=== PATIENT | male | born 1990 | race Caucasian/White ===

== ENCOUNTER 2019-04-06 13:58 | Emergency (ER) | payer OTHER, SELFPAY ==
[2019-04-06] MEDS ORDERED: Dexamethasone 4 mg/ml Vial ONE (14:26)
== END 2019-04-06 15:45 | disposition home or self-care (01) ==
LOC: ERS 13:58
DX: T63.441A Toxic effect of venom of bees, accidental (unintentional), initial encounter (principal); L50.0 Allergic urticaria
CPT/HCPCS: 96374; J1100

== ENCOUNTER 2024-03-03 23:48 | Observation (INO) | payer SELFPAY ==
[2024-03-04 03:10] VITALS: BMI 41.0
[2024-03-04] MEDS ORDERED: hydrALAZINE 20 MG/ML VIAL SLOW IVP PRN (05:44)
[2024-03-04] MEDS ORDERED: Ipratropium/Albuterol 3 ML NEB NEB PRN ×2 (05:44→15:17)
[2024-03-04] MEDS ORDERED: Ondansetron PF 4 MG/2 ML Vial IVP PRN ×2 (05:44→15:17)
[2024-03-04] MEDS ORDERED: Acetaminophen 325 MG TAB PO PRN (05:53)
[2024-03-04] MEDS ORDERED: Piperacillin/Tazobactam 3.375 GM in Sodium Chloride 0.9% 100 ML IVPB SCH ×2 (06:00→15:30)
[2024-03-04] MEDS: Lactated Ringer's 1,000 ML IV SCH (08:11)
[2024-03-04 08:27] LABS: #Basophils 0.08 10x3/uL (0.0-0.2); %Basophils 0.7 % (0.0-1.0); %Eosinophils 2.7 % (0.0-10.0); %Lymphocytes 25.5 % (21.0-51.0); %Monocytes 6.6 % (0.0-10.0); %Neutrophils 63.8 % (42.0-75.0); Hematocrit 38.1 % (42.0-52.0); Mean Corpuscular HGB CONC 34.1 g/dL (32.0-36.0); Mean Corpuscular Hemoglobin 27.6 pg (27.0-31.0); Mean Corpuscular Volume 80.9 fL (78.0-98.0); Mean Platelet Volume 9.1 fL (7.4-10.4); Platelet Count 342 10x3/uL (130-400); RBC Distribution Width 11.8 % (11.5-14.5); Red Blood Cell (RBC) Count 4.71 mill/uL (4.70-6.10)
[2024-03-04 08:44] LABS: ALT (SGPT) 39 U/L (8-55); AST (SGOT) 25 U/L (5-34); Alkaline Phosphatase 108 U/L (40-110); Anion Gap 11 mmol/L (10-20); BUN (Urea Nitrogen) 7 mg/dL (8.9-20.6); Bilirubin, Total 0.3 mg/dL (0.2-1.2); Calc. Creatinine Clearance 221 mL/min (70-130); Carbon Dioxide 27 mmol/L (22-29); Chloride 104 mmol/L (98-107); Estimated GFR 119; Globulin 3.9 g/dL (2.4-3.5); Glucose 85 mg/dL (70-105); Potassium 4.1 mmol/L (3.5-5.1); Protein, Total 6.9 g/dL (6.0-8.3); Sodium 138 mmol/L (136-145)
[2024-03-04] MEDS ORDERED: Midazolam HCl 2 mg/2 ml Vial ONE (09:27)
[2024-03-04] MEDS ORDERED: Ondansetron PF 4 MG/2 ML Vial ONE ×2 (09:27→14:48)
[2024-03-04] MEDS ORDERED: Lidocaine 1% PF 5 ML VIAL ONE (09:27)
[2024-03-04] MEDS ORDERED: fentaNYL PF 100 MCG/2 ML SYRINGE ONE (09:27)
[2024-03-04] MEDS ORDERED: PROPOFOL 20 ML ONE (09:27)
[2024-03-04] MEDS ORDERED: SUGAMMADEX SODIUM 200 MG/2 ML VIAL ONE (09:27)
[2024-03-04] MEDS ORDERED: Rocuronium Bromide 10 MG/ML (10ML VIAL) ONE (09:27)
[2024-03-04] MEDS: Famotidine 20 MG TAB PO SCH ×2 (09:37→20:44)
[2024-03-04] MEDS: Piperacillin/Tazobactam 3.375 GM in Sodium Chloride 0.9% 100 ML IVPB SCH ×2 (09:38→17:33)
[2024-03-04] MEDS: Famotidine/PF 20 mg/2ml Vial SLOW IVP SCH (09:38)
[2024-03-04] MEDS ORDERED: Bupivacaine PF 0.5% 30 ML VIAL ONE (13:06)
[2024-03-04] MEDS ORDERED: EPINEPHrine 1 MG/ML VIAL ONE (13:06)
[2024-03-04] MEDS ORDERED: GLYCOPYRROLATE/PF 0.2 MG/ML VIAL ONE (13:48)
[2024-03-04] MEDS ORDERED: fentaNYL 50 mcg/mL 1 mL Vial ONE ×4 (13:49→16:01)
[2024-03-04] MEDS ORDERED: Dextrose 5% in Water 1,000 ML IV PRN (15:17)
[2024-03-04] MEDS ORDERED: Glucagon 1 MG/ML KIT IM PRN (15:17)
[2024-03-04] MEDS ORDERED: Calcium Carbonate 500 MG ChewTAB PO PRN (15:17)
[2024-03-04] MEDS ORDERED: HYDROcodone/Acetaminophen 10/325 mg Tablet PO PRN (15:17)
[2024-03-04] MEDS ORDERED: Dextrose 50% Abboject 50 ML SYRINGE SLOW IVP PRN (15:17)
[2024-03-04] MEDS: HYDROcodone/Acetaminophen 7.5/325 mg Tablet PO PRN (17:28)
[2024-03-04] MEDS: D5 1/2 NS w/20 mEq KCL 1,000 ML IV SCH (17:33)
[2024-03-04] MEDS: Ketorolac Tromethamine 30 MG (1 mL) VIAL IVP SCH (18:02)
[2024-03-05 05:25] LABS: ALT (SGPT) 51 U/L (8-55); AST (SGOT) 36 U/L (5-34); Albumin 2.9 g/dL (3.5-5.0); Alkaline Phosphatase 97 U/L (40-110); Anion Gap 17 mmol/L (10-20); BUN (Urea Nitrogen) 7 mg/dL (8.9-20.6); Bilirubin, Total 0.5 mg/dL (0.2-1.2); Calc. Creatinine Clearance 219 mL/min (70-130); Calcium 9.1 mg/dL (7.8-10.44); Carbon Dioxide 22 mmol/L (22-29); Chloride 102 mmol/L (98-107); Estimated GFR 119; Globulin 4.2 g/dL (2.4-3.5); Glucose 134 mg/dL (70-105); Potassium 4.3 mmol/L (3.5-5.1); Protein, Total 7.1 g/dL (6.0-8.3); Sodium 137 mmol/L (136-145)
[2024-03-05 05:27] LABS: #Basophils 0.03 10x3/uL (0.0-0.2); #Eosinphils Less than 0.03 10x3/uL (0.0-0.7); %Basophils 0.2 % (0.0-1.0); %Lymphocytes 10.3 % (21.0-51.0); %Monocytes 5.9 % (0.0-10.0); %Neutrophils 82.8 % (42.0-75.0); Hematocrit 39.2 % (42.0-52.0); Mean Corpuscular HGB CONC 33.2 g/dL (32.0-36.0); Mean Corpuscular Hemoglobin 26.7 pg (27.0-31.0); Mean Corpuscular Volume 80.7 fL (78.0-98.0); Platelet Count 383 10x3/uL (130-400); RBC Distribution Width 11.9 % (11.5-14.5); Red Blood Cell (RBC) Count 4.86 mill/uL (4.70-6.10)
[2024-03-05 09:01] VITALS: BP 136/80; TEMP 98.5
[2024-03-05] MEDS: Senokot S 8.6-50 MG TAB PO SCH (09:40)
[2024-03-05] MEDS: Enoxaparin 30 MG (0.3 mL) SYRINGE SC SCH (09:40)
== END 2024-03-05 15:43 | disposition home or self-care (01) ==
LOC: MSONC 23:48 → UNDOADMOB 23:48 → MSONC 03-04 01:16
PROVIDERS: ADMIT Surgery; ATTEND Surgery
PROC: 0FT44ZZ Resection of Gallbladder, Percutaneous Endoscopic Approach (ICD-10-PCS; principal; 2024-03-05)
DX: K80.10 Calculus of gallbladder with chronic cholecystitis without obstruction (principal); Z79.899 Other long term (current) drug therapy
CPT/HCPCS: 36415; 80053; 85025; 88304; C1713; C1889; J0171; J0665; J1650; J1885; J2250; J2405; J2543; J2704; J3010; J3480; J3490; J7120